=== PATIENT | female | born 1950 | race Caucasian/White ===

== ENCOUNTER 2016-12-24 12:45 | Day surgery (SDC) | payer OTHER ==
[~2016-12-24] VITALS: Ht 160 cm; Wt 92.5 kg
[2016-12-24] MEDS ORDERED: toradol (14:06)
[2016-12-24] MEDS ORDERED: norco (14:06)
[2016-12-24] MEDS ORDERED: TRAZ300T15 PO (14:06)
[2016-12-24] MEDS ORDERED: oxycodone (14:06)
[2016-12-24 14:07] VITALS: Ht 160 cm; Wt 92.5 kg
[2016-12-24 15:23] VITALS: BP 110/66; PULSE 59; RESP 13
[2016-12-24] MEDS ORDERED: PROPOFOL 60 ML ONE (16:25)
[2016-12-24] MEDS ORDERED: LIDOCAINE 2% (SDV) 5 ML INJ ONE (16:25)
[2016-12-24] MEDS ORDERED: FENTAnyl 50 MCG/ML VIAL ONE (16:47)
[2016-12-24] MEDS ORDERED: TRAM-40 PO (20:37)
[2016-12-24] MEDS ORDERED: OXYC-279 PO (20:37)
[2016-12-24] MEDS ORDERED: HYDR-906 PO (20:38)
--- NOTE | 2016-12-26 07:16 | GILP ---
DATE OF PROCEDURE: 12/24/2016 PROCEDURE: Colonoscopy to cecum with biopsies, enteroscopy with biopsies. BRIEF HISTORY AND INDICATIONS: The patient is being evaluated for history of colonic polyps. PREMEDICATION: Monitored anesthesia care by anesthesiologist. SURGEON: Luis Kong MD INSTRUMENT USED: Olympus colonoscope. PREPARATION: Adequate. TECHNIQUE: After informed consent, with the patient/relatives understanding the procedure, its tristen cations potential risks and complications, including but not limited to: allergic reaction, bleeding , perforation, infection, missed lesions and after all pertinent questions were answered to the brandon ent's satisfaction; the patient/relatives signed the witnessed informed consent. Following this, premedication was administered slowly IV push by under careful cardiovascular and re spiratory monitoring with pulse oximetry, automatic blood pressure and supervisor statement clerks. Once the sedativ e effect was achieved, the patient was placed in the left lateral decubitus position, digital rectal examination was performed. The colonoscope was then introduced and advanced under visual control th roughout all segments of the colon including: the rectum, sigmoid, descending colon, splenic flexure , transverse colon, hepatic flexure, ascending colon and finally reaching the cecum which was clearl y identified by transillumination, finger indentation and the ileocecal valve. Careful examination o f the mucosa of the lower gastrointestinal tract both on insertion as well as withdrawal of the inst rument disclosed the following findings: Rectal Examination: No evidence of perirectal disease, no masses. Colonic Mucosa: The colonic mucosa is unremarkable with exception of marked linear erythema and ero [place] in the proximal ascending colon. Biopsies were obtained. Terminal ileum appears definitely at rophic. Biopsies were obtained as well. The instrument was withdrawn reexamining mucosa in detail. No additional abnormalities are noted. Random biopsies were obtained. IMPRESSION: 1. Marked linear erythema/erosion in the proximal ascending colon. Biopsies obtained. 2. Atrophic terminal ileum. Biopsies obtained. 3. Moderate size internal hemorrhoids. PLAN: The patient will be followed up as an outpatient. Pathology will be reviewed as soon as kervin maria and further recommendation will depend on the patient's clinical course as well as review of b iopsies. Surveillance colonoscopy in 5 years is recommended. Again, pending review of pathology. POST SCRIPT (PS): The patient developed some chest discomfort and palpitations, and after observati on; it was decided to refer her to the emergency room for further evaluation. Throughout her stay i n the GI lab, her vital signs remained stable and her chest pain appeared to be musculoskeletal and not cardiac in nature. As a precaution, she will be transferred to the emergency room for further e valuation. Dictated By: LUIS KONG MS/JOIE Conf#: [id number] DID#: [id number]
== END 2016-12-24 20:57 | disposition home or self-care (01) ==
LOC: GIL 12:45
PROVIDERS: ATTEND Internal Medicine Gastroenterology
DX: Z86.010 Personal history of colon polyps (principal); K64.8 Other hemorrhoids; E66.9 Obesity, unspecified; Z68.36 Body mass index [BMI] 36.0-36.9, adult
CPT/HCPCS: 45380; 88305; J3010; Z7610

== ENCOUNTER 2016-12-24 19:14 | Inpatient (IN) | payer OTHER ==
[~2016-12-24] VITALS: Ht 160 cm; Wt 90.0 kg
[~2016-12-24 19:14] MED LIST: TRAZ300T15 PO; norco; oxycodone; toradol
--- NOTE | 2016-12-24 19:20 | ERA ---
ER Documentation Chief Complaint Date/Time DATE: 12/24/16 TIME: 19:18 Chief Complaint The patient is a 66-year-old female, presenting to the ER because of substernal chest pain palpitation after she woke up from anesthesia for colonoscopy the last 3 hours. The chest pain is 5/10, no aggravating or relieving factor, no radiation. She denies chest pain with exertion or vomiting or diaphoresis. She denies headache, neck pain, abdominal pain, vomiting, diarrhea, constipation. She does not smoke, drinks socially Past medical history: Fibromyalgia, cholelithiasis, history of PE in May 2001 Past surgical history: Right knee replacement, left knee, right ankle ROS All systems reviewed and are negative except as per history of present illness. Medications Home Meds Reported Medications Hydrocodone/Acetaminophen ([facility] 5-325 Tablet) 1 Each Tablet, 1 EACH PO TID, TAB 12/24/16 Tramadol Hcl* (Ultram*) 50 Mg Tablet, 50 MG PO Q6H Y for PAIN, TAB 12/24/16 Oxycodone HCl/Acetaminophen (Percocet 5-325 mg Tablet) 1 Each Tablet, 1 EACH PO Q6H Y for PRN, TAB 12/24/16 Trazodone Hcl* (Trazodone Hcl*) 300 Mg Tablet, 300 MG PO QHS, #30 TAB 12/24/16 Discontinued Reported Medications [oxycodone] No Conflict Check 12/24/16 [norco] No Conflict Check 12/24/16 [toradol] No Conflict Check 12/24/16 Allergies Allergies: Coded Allergies: No Known Allergy (Unverified , 12/24/16) PMhx/Soc History of Surgery: Yes (rt knee replacement, left knee, right ankle, tonsillectomy) Anesthesia Reaction: No Hx Neurological Disorder: No Hx Respiratory Disorders: No Hx Cardiac Disorders: No Hx Psychiatric Problems: No Hx Alcohol Use: Yes Hx Substance Use: No Hx Tobacco Use: No Physical Exam Vitals Vital Signs Date Time Temp Pulse Resp B/P Pulse Ox O2 Delivery O2 Flow Rate FiO2 12/24/16 19:32 98.1 71 18 114/68 98 Physical Exam Const: No acute distress. Head: Atraumatic. Eyes: Normal Conjunctiva. ENT: Normal External Ears, Nose and Mouth. Neck: Full range of motion. No meningismus. Resp: Clear to auscultation bilaterally. Cardio: Regular rate and rhythm, no murmurs. Abd: Soft, non distended, normal bowel sounds, non tender. Skin: No petechiae or rashes. Back: No midline or flank tenderness. Ext: No cyanosis, or edema. Neur: Awake and alert. No focal deficit Psych: Normal Mood and Affect. Result Diagram: 12/24/16192912/24/161929 Results 24 hrs Laboratory Tests Test 12/24/16 19:30 Activated Partial Thromboplast Time 27.5Sec Anion Gap 15 Basophils # 0.010^3/ul Basophils % 0.2% Blood Urea Nitrogen 8mg/dl Calcium Level 8.9mg/dl Carbon Dioxide Level 26mmol/L Chloride Level 104mmol/L Creatinine 0.65mg/dl Eosinophils # 0.010^3/ul Eosinophils % 0.1% Glucose Level 79mg/dl Hematocrit 40.6% Hemoglobin 13.6g/dl INR International Normalized Ratio 0.99 Lymphocytes # 1.410^3/ul Lymphocytes % 13.8% Mean Corpuscular Hemoglobin 32.1pg Mean Corpuscular Hemoglobin Concent 33.5g/dl Mean Corpuscular Volume 95.8fl Mean Platelet Volume 9.9fl Monocytes # 0.610^3/ul Monocytes % 6.0% Neutrophils # 8.210^3/ul Neutrophils % 79.5% Nucleated Red Blood Cells # 0.010^3/ul Nucleated Red Blood Cells % 0.0/100WBC Platelet Count 99155^3/UL Potassium Level 3.7mmol/L Prothrombin Time 13.1Sec Prothrombin Time Ratio 1.0 Red Blood Count 4.2410^6/ul Red Cell Distribution Width 12.8% Sodium Level 141mmol/L Troponin I < 0.012ng/ml White Blood Count 10.310^3/ul Procedures/[place] [address] Radiology Main Line: [phone] DIAGNOSTIC IMAGING REPORT Patient: ERNIE HENRIQUEZ : 1950 Age: 66 Sex: F MR #: [id number] DOS: 12/24/161932 Ordering MD: ABBY FOOTE MD Location: E/R Room/Bed: PROCEDURE: XR Chest. CLINICAL INDICATION: Chest pain. TECHNIQUE: Single frontal view of the chest was obtained COMPARISON: None FINDINGS: The heart and mediastinum are within normal limits. The lungs are clear. There is no pleural effusion or pneumothorax. IMPRESSION: No acute disease. RPTAT: [facility] Physician Ynes Date Time Electronically viewed and signed by Physician Ynes on 12/24/2016 20:35 RS/ CC: ABBY FOOTE MD \ EKG: Read by emergency physician Rate/Rhythm: Normal Sinus Rhythm 73 beats/min QRS, ST, T-waves: No ST elevation, no T inversion Impression: Normal EKG MEDICAL MAKING DECISION: The patient is a 66-year-old female, presenting with acute chest pain of unclear etiology. She was treated with aspirin 325 mg p.o. , 1 inch of nitroglycerin ointment with good response. The differential diagnoses considered include but are not limited to acute coronary syndrome, acute myocardial infarction, pericarditis, pulmonary embolism, aortic dissection , pneumonia, pleural effusion, pneumothorax, GERD, chest wall pain. Departure Diagnosis: Primary Impression: Chest pain Condition: Stable Comments I discussed the findings with the patient. I discussed the patient with the on- call hospitalist Dr. Ponce. who was made aware of the lab, the treatment, the patient condition, the pending CT angiogram of the chest to rule out pulmonary embolism. The patient is admitted to telemetry at 8:45 PM ABBY FOOTE MD Dec 24, 2016 19:20
[2016-12-24 19:32] VITALS: Ht 160 cm; Wt 90.0 kg
[2016-12-24 19:58] LABS: ADD SCAN DIFF NO
[2016-12-24 20:01] LABS: BASOPHILS % 0.2 % (0.0-2.0); EOSINOPHILS % 0.1 % (0.0-7.0); HEMATOCRIT 40.6 % (37.0-47.0); HEMOGLOBIN 13.6 g/dl (12.0-16.0); LYMPHOCYTES # 1.4 10^3/ul (0.8-2.9); LYMPHOCYTES % 13.8 % (15.0-51.0); MEAN CORPUSCULAR HEMOGLOBIN 32.1 pg (29.0-33.0); MEAN CORPUSCULAR HGB CONC 33.5 g/dl (32.0-37.0); MEAN CORPUSCULAR VOLUME 95.8 fl (82.0-101.0); MEAN PLATELET VOLUME 9.9 fl (7.4-10.4); MONOCYTE # 0.6 10^3/ul (0.3-0.9); NEUTROPHIL # 8.2 10^3/ul (1.6-7.5); NEUTROPHILS % 79.5 % (39.0-77.0); PLATELET COUNT 216 10^3/UL (140-415); RED BLOOD COUNT 4.24 10^6/ul (4.20-5.40); RED CELL DISTRIBUTION WIDTH 12.8 % (11.5-14.5); WHITE BLOOD COUNT 10.3 10^3/ul (4.8-10.8)
[2016-12-24 20:14] LABS: INR 0.99; PARTIAL THROMBOPLASTIN TIME 27.5 Sec (25.0-35.0); PROTIME 13.1 Sec (12.2-14.2)
[2016-12-24 20:17] LABS: CHLORIDE 104 mmol/L (97-110); POTASSIUM 3.7 mmol/L (3.5-5.1); SODIUM 141 mmol/L (135-144)
[2016-12-24 20:20] LABS: ANION GAP 15 (8-16); BLOOD UREA NITROGEN 8 mg/dl (7-20); CARBON DIOXIDE 26 mmol/L (21-31); CREATININE 0.65 mg/dl (0.44-1.00)
[2016-12-24 20:21] LABS: CALCIUM 8.9 mg/dl (8.4-10.2); GLUCOSE 79 mg/dl (70-220)
[2016-12-24 20:34] LABS: TROPONIN-I < 0.012 ng/ml (0.00-0.12)
--- NOTE | 2016-12-24 20:35 | RADRPT ---
PROCEDURE: XR Chest. CLINICAL INDICATION: Chest pain. TECHNIQUE: Single frontal view of the chest was obtained COMPARISON: None FINDINGS: The heart and mediastinum are within normal limits. The lungs are clear. There is no pleural effusion or pneumothorax. IMPRESSION: No acute disease. RPTAT: [facility] Physician Ynes Date Time Electronically viewed and signed by Alondra Copeland Physician on 12/24/2016 20:35 RS/
[2016-12-24] MEDS ORDERED: TRAM-40 PO (20:37)
[2016-12-24] MEDS ORDERED: OXYC-279 PO (20:37)
[2016-12-24] MEDS ORDERED: HYDR-906 PO (20:38)
[2016-12-24] MEDS ORDERED: NITROGLYCERIN 2% 1 GM OINT PKT TD ONE (21:00)
[2016-12-24] MEDS ORDERED: ASPIRIN 325 MG TAB PO ONE (21:00)
[2016-12-24] MEDS ORDERED: HYDROCODONE/APAP (5/325) TAB PO ONE (21:30)
[2016-12-24] MEDS ORDERED: SOD CHLORIDE 0.9% 100 ML ONE (21:51)
[2016-12-24] MEDS ORDERED: IOHEXOL 350MG/ML 50 ML BTL ONE (21:51)
[2016-12-24] MEDS ORDERED: IOHEXOL 100 ML ONE (21:51)
--- NOTE | 2016-12-24 22:24 | HP ---
Date/Time of Note Date/Time of Note DATE: 12/24/16 TIME: 22:23 Assessment/Plan VTE Prophylaxis VTE Prophylaxis Intervention: other (Lovenox) Lines/Catheters IV Catheter Type (from Nrsg): Saline Lock Assessment/Plan Assessment/Plan 1) Chest Pain - Admit to Telemetry for "Rule Out" - Serial Troponins - EKG in AM 2) Chronic Pain with Fibromyalgia, Neck and Back Disk problems - Patient is on both Oxycodone and Hydrocodone. Review of her Pharmacy information indicates that one was filled on 11/28/16 and the other on 11/29/16, both for #90. One listed as a 30 day supply (TID) and the other, a 23 day supply (TID-QID). 3) Insomnia - Continue usual medication: Trazodone 300 mg nightly HPI/ROS Admit Date/Time Admit Date/Time 12/24/2016 Hx of Present Illness CC: Chest pain This is a 66 year old woman who presents with a complaint of palpitations and continuing chest pain since coming out of sedation after her Colonoscopy today. She has already had 2 or 3 of them without any trouble. She states that at that time, her CP was sharp, centrally located, radiating laterally and rated it a 9/ 10 on the pain scale. She mentions mild SOB no nausea and the pain did not radiate to her back. Currently, she states her pain is 7/10, dull. No nausea. No SOB, but having mild, gassy abdominal pain. Patient complains of back pain stating the gurney is very uncomfortable, and she wants her pillows to be adjusted. She would also like to take the pain medicine she brought from home. When I asked her what she stakes, she said she already told the nurse and suggested that I get a computer where I could see all the information. I told her no, she may not take the home pain medications and proceeded with my interview and exam. Patient repeated several times about her Fibromyalgia, chronic back and neck pain and the specific need to have Trazodone 300 mg at bedtime so she could sleep because people with Fibromyalgia need more sleep, and if she does not sleep her pain will be worse tomorrow. I mentioned that people with Fibromyalgia need adequate sleep. Since I could not get information about her pain medication, I spoke with the [employer] Evidence Technician that did her Med Rec. She showed me the patient's pharmacy list from [facility] - no doctor's names were listed, but it appeared that the majority of the medications had been filled in the last month. Of particular interest to me was that patient was prescribed # 90 Oxycodone 5/325 on 11/28/16 and on 11/29/16, she was prescribed # 90 Hydrocodone. One was a 30 day supply and the other a 23 day supply. Other medications listed were Tramadol 50 mg, # 240; Meloxicam 7.5 mg # 60; Nortriptyline 10 mg # 30; Desyrel 100 mg # 90; Myrbetric 50 mg # 30 and some Diclofenac Gel. I went back to patient and asked her about all these medications. She states she needs both the Oxycodone and the Hydrocodone. She states she was never given Tramadol, that it was Toradol, and it did not help. The Meloxicam did not help, nor did the Desyrel or Nortriptyline. She said all her medications had been changed. She had already told me that her PDP was Flora Leyva MD at the [facility]. I asked her if she had a pain management doctor and she said yes - Teodoro Garcia MD. Ultimately, she tells me that she gets 2 Hydocodone and 2 Oxycodone with each dose, and I explained to her that her medications were prescribed were for 1 each, 3 times per day and that I Prescribed her 2 Oxycodone 5/325 Q 6 hours, since they are stronger than the Hydrocodone.. She said she only got 2 Hydrocodone, and I explained that was what was originally RXd, until I had a chance to look at her medications. Again, she complains of the severe pain she is in. History as per ER Physician: The patient is a 66-year-old female, presenting to the ER because of substernal chest pain palpitation after she woke up from anesthesia for colonoscopy the last 3 hours. The chest pain is 5/10, no aggravating or relieving factor, no radiation. She denies chest pain with exertion or vomiting or diaphoresis. She denies headache, neck pain, abdominal pain, vomiting, diarrhea, constipation. She does not smoke, drinks socially ER Course per ER Physician: The patient is a 66-year-old female, presenting with acute chest pain of unclear etiology. She was treated with aspirin 325 mg p.o., 1 inch of nitroglycerin ointment with good response. The differential diagnoses considered include but are not limited to acute coronary syndrome, acute myocardial infarction, pericarditis, pulmonary embolism, aortic dissection , pneumonia, pleural effusion, pneumothorax, GERD, chest wall pain. ROS General: Admits: Denies: Fever, Chills, Poor Appetite, Generalized Body Aches Eyes: Admits: Denies: Blurry Vision, Double Vision HENT: Admits: Denies: Sinus Pain/Pressure, Ear Pain/Pressure, Runny/Stuffy Nose, Sore Throat Cardiovascular: Admits: Chest Pain, Palpitations (resolved) Denies: Leg Swelling Pulmonary: Admits: Shortness of Breath (resolved) Denies: Cough, Wheeze Gastrointestinal: Admits: Abdominal Pain, mild, gassy Denies: Nausea, Vomiting, Diarrhea, Blood in Stool, Black-Colored Stool Urogenital: Admits: Denies: Burning with Urination, Urinary Frequency, Blood in Urine, Nocturia Musculoskeletal: Admits: Chronic back and neck pain Denies: Neurological: Admits: Denies: Headache, Dizziness, Numbness, Tingling, Shooting Pains Integumentary: Admits: Denies: Rash, Itch, Yellow Skin PMH/Family/Social Past Medical History Fibromyalgia; Cholelithiasis; PE in May 2001; 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 Smoking Status: Never smoker Drug Use: none Exam/Review of Systems Vital Signs Vitals Vital Signs Date Time Temp Pulse Resp B/P Pulse Ox O2 Delivery O2 Flow Rate FiO2 12/24/16 19:32 98.1 71 18 114/68 98 Exam Exam General: WD?WN female, alert and oriented, reclining comfortably on gurney, smiling through the interview and exam. No evidence of moderate or severe pain or any distress. Eyes: Sclera White, EOMI HENT: Normocephalic/Atraumatic, External Ears/Nose Normal, Moist Mucus Membranes Neck: Supple, Trachea Midline Cardiovascular: Normal Rate, Normal Rhythm, Normal S1 and S2, No Murmur, No Extra Sounds Pulmonary: Clear to Auscultation Bilaterally, Normal Respiratory Effort, No Rales, Rhonchi or Wheezes Gastrointestinal: Normoactive Bowel Sounds, Soft, Non-Tender/Non-Distended, No Hepatosplenomegaly Appreciated, No Pulsatile Masses Urogenital: Deferred Musculoskeletal: Normal Muscle Bulk and Tone Neurological: CN II - XII Grossly Intact, Non-Focal, Speech Normal Integumentary: Normal Moisture and Temperature, Good Turgor, No Jaundice, No Rash Lymphatic: No Cervical Lymphadenopathy Psychiatric: Appropriate Mood and Affect, Good Eye Contact Labs Result Diagram: 12/24/16192912/24/161929 Medications Medications Home Meds Reported Medications Hydrocodone/Acetaminophen ([place] 5-325 Tablet) 1 Each Tablet, 1 EACH PO TID, TAB 12/24/16 Tramadol Hcl* (Ultram*) 50 Mg Tablet, 50 MG PO Q6H Y for PAIN, TAB 12/24/16 Oxycodone HCl/Acetaminophen (Percocet 5-325 mg Tablet) 1 Each Tablet, 1 EACH PO Q6H Y for PRN, TAB 12/24/16 Trazodone Hcl* (Trazodone Hcl*) 300 Mg Tablet, 300 MG PO QHS, #30 TAB 12/24/16 Discontinued Reported Medications [oxycodone] No Conflict Check 12/24/16 [norco] No Conflict Check 12/24/16 [toradol] No Conflict Check 12/24/16 Current Medications Trazodone HCl (Desyrel) 300 mg HS PO ; Start 12/25/16 at 21:00 Procedures Procedures Laboratory Tests Test 12/24/16 19:30 Activated Partial Thromboplast Time 27.5Sec Anion Gap 15 Basophils # 0.010^3/ul Basophils % 0.2% Blood Urea Nitrogen 8mg/dl Calcium Level 8.9mg/dl Carbon Dioxide Level 26mmol/L Chloride Level 104mmol/L Creatinine 0.65mg/dl Eosinophils # 0.010^3/ul Eosinophils % 0.1% Glucose Level 79mg/dl Hematocrit 40.6% Hemoglobin 13.6g/dl INR International Normalized Ratio 0.99 Lymphocytes # 1.410^3/ul Lymphocytes % 13.8% Mean Corpuscular Hemoglobin 32.1pg Mean Corpuscular Hemoglobin Concent 33.5g/dl Mean Corpuscular Volume 95.8fl Mean Platelet Volume 9.9fl Monocytes # 0.610^3/ul Monocytes % 6.0% Neutrophils # 8.210^3/ul Neutrophils % 79.5% Nucleated Red Blood Cells # 0.010^3/ul Nucleated Red Blood Cells % 0.0/100WBC Platelet Count 66644^3/UL Potassium Level 3.7mmol/L Prothrombin Time 13.1Sec Prothrombin Time Ratio 1.0 Red Blood Count 4.2410^6/ul Red Cell Distribution Width 12.8% Sodium Level 141mmol/L Troponin I < 0.012ng/ml White Blood Count 10.310^3/ul EKG: EKG: Read by emergency physician Rate/Rhythm: Normal Sinus Rhythm 73 beats/min QRS, ST, T-waves: No ST elevation, no T inversion Impression: Normal EKG RADIOLOGY: PROCEDURE: CTA Chest. CLINICAL INDICATION: Chest pain, rule out pulmonary embolism. FINDINGS: No pulmonary embolism is identified, however evaluation for subsegmental emboli in the lung bases is limited by respiratory motion. The main pulmonary artery is normal in caliber. There is no aortic aneurysm. The heart is normal in size. There is no pericardial effusion. There are mild dependent atelectatic changes in the lungs. No pulmonary edema or consolidation is identified No pleural effusion or pneumothorax is identified. No suspicious thyroid lesion is seen. There is no thoracic lymphadenopathy. The trachea and mainstem bronchi are patent. Limited evaluation of the upper abdomen is unremarkable. There is no suspicious osseous lesion. IMPRESSION: 1. No pulmonary embolism is identified, however evaluation for subsegmental emboli in the lung bases is limited by respiratory motion. 2. No pulmonary edema or consolidation. PROCEDURE: XR Chest. CLINICAL INDICATION: Chest pain. TECHNIQUE: Single frontal view of the chest was obtained COMPARISON: None FINDINGS: The heart and mediastinum are within normal limits. The lungs are clear. There is no pleural effusion or pneumothorax. IMPRESSION: No acute disease. JALEEL JONES DO Dec 24, 2016 22:23 IMPRESSION: 1. No pulmonary embolism is identified, however evaluation for subsegmental emboli in the lung bases is limited by respiratory motion. 2. No pulmonary edema or consolidation. PROCEDURE: XR Chest. CLINICAL INDICATION: Chest pain. TECHNIQUE: Single frontal view of the chest was obtained COMPARISON: None FINDINGS: The heart and mediastinum are within normal limits. The lungs are clear. There is no pleural effusion or pneumothorax.
--- NOTE | 2016-12-24 22:57 | RADRPT ---
PROCEDURE: CTA Chest. CLINICAL INDICATION: Chest pain, rule out pulmonary embolism. TECHNIQUE: Direct spiral 1.25 mm axial sections were obtained from the thoracic inlet to the upper abdomen with the use of 88 cc of [id number]-350 nonionic intravenous contrast material. Axial MIP, c oronal, and sagittal reformations were obtained. The images were reviewed on a PACS workstation. CTD Ivol: 11.27, 17.75 mGy. DLP: 689.31 mGy-cm. One or more of the following dose reduction techniques were used: - Automated exposure control. - Adjustment of the mA and/or kV according to patient size. - Use of iterative reconstruction technique. COMPARISON: None. FINDINGS: No pulmonary embolism is identified, however evaluation for subsegmental emboli in the lung bases is limited by respiratory motion. The main pulmonary artery is normal in caliber. There is no aortic aneurysm. The heart is normal in size. There is no pericardial effusion. There are mild dependent atelectatic changes in the lungs. No pulmonary edema or consolidation is id entified No pleural effusion or pneumothorax is identified. No suspicious thyroid lesion is seen. There is no thoracic lymphadenopathy. The trachea and mainste m bronchi are patent. Limited evaluation of the upper abdomen is unremarkable. There is no suspicious osseous lesion. IMPRESSION: 1. No pulmonary embolism is identified, however evaluation for subsegmental emboli in the lung base s is limited by respiratory motion. 2. No pulmonary edema or consolidation. RPTAT: HTAR .Wes Ash MD, MD Date Time Electronically viewed and signed by .Wes Ash MD, on 12/24/2016 22:57 .R/
[2016-12-25] VITALS (9 sets, daily range): BP systolic 86–109; BP diastolic 50–83; PULSE 63–100; RESP 17–18
[2016-12-25] MEDS ORDERED: NACL 0.9% 3 ML SYG IV SCH
[2016-12-25] MEDS ORDERED: ONDANSETRON 4 MG INJ IV PRN
[2016-12-25] MEDS ORDERED: ONDANSETRON 4 MG TAB PO PRN
[2016-12-25] MEDS ORDERED: ACETAMINOPHEN 325 MG TAB PO PRN
[2016-12-25] MEDS ORDERED: NITROGLYCERIN (SL) 0.4 MG TAB SL PRN
[2016-12-25] MEDS: OXYCODONE/ACETAMINOPHEN (5/325) TAB PO PRN ×2 (00:30→10:02)
[2016-12-25 02:51] LABS: CREATINE KINASE 31 IU/L (23-200)
[2016-12-25 02:58] LABS: CK-MB 0.34 ng/ml (0.0-2.4)
[2016-12-25 03:17] LABS: TROPONIN-I < 0.012 ng/ml (0.00-0.12)
[2016-12-25 08:05] LABS: CREATINE KINASE 22 IU/L (23-200)
[2016-12-25 08:07] LABS: CK-MB 0.29 ng/ml (0.0-2.4)
[2016-12-25 08:10] LABS: TROPONIN-I < 0.012 ng/ml (0.00-0.12)
[2016-12-25] MEDS ORDERED: ENOXAPARIN 40 MG/0.4 ML SYG SC SCH (09:00)
--- NOTE | 2016-12-25 18:33 | EN ---
Date/Time of Note Date/Time of Note DATE: 12/25/16 TIME: 18:32 Event Note Medicine Medicine Event Note DISCHARGE SUMMARY Patient left hospital against medical advice Patient was not reviewed today by me. No discharge medications or instructions were given by me. HIPOLITO MILLS Dec 25, 2016 18:33
[2016-12-25] MEDS ORDERED: traZODone 100 MG TAB PO SCH ×2 (21:00)
== END 2016-12-25 16:49 | disposition left against medical advice (07) | DRG 313 ==
LOC: E/R 19:14 → MS4 20:58
PROVIDERS: ADMIT Family Medicine; ATTEND Family Medicine
DX: R07.89 Other chest pain (principal); G89.29 Other chronic pain; M79.1 Myalgia; Z79.891 Long term (current) use of opiate analgesic; G47.00 Insomnia, unspecified
CPT/HCPCS: 36415; 71010; 71275; 80048; 82550; 82553; 84484; 85025; 85610; 85730; 93005; J1650; Q9967